=== PATIENT | male | born 1935 | race African-American/Black ===

== ENCOUNTER 2021-04-16 01:47 | Inpatient (IN) | payer MEDICARE, OTHER ==
[~2021-04-16] VITALS: Ht 198.1 cm; Wt 88.0 kg
[2021-04-16] VITALS (14 sets, daily range): BP systolic 122–168; BP diastolic 49–99
--- NOTE | 2021-04-16 01:51 | NUR ---
PT BIBRA C/O SOB WHEN POWER IN HOUSE WENT OUT AND HOME O2 STOPPED WORKING. PT AAOX4 BREATHING EVENLY AND UNLABORED ON 2L O2 VIA NC STATURATING 96%. MD AT BEDSIDE FOR EVAL. PT ATTACHED TO MONITOR AND POX. PT GIVEN BLANKET AND CALL LIGHT WITHIN REACH
--- NOTE | 2021-04-16 03:04 | NUR ---
CALLED CARYL TO HAVE IMAGES READ
[2021-04-16] MEDS ORDERED: CEFTRIAXONE 1GM BAG (ER ONLY) 50 ML IV ONE (04:11)
[2021-04-16] MEDS ORDERED: AZITHROMYCIN 500 MG VIAL ONE (04:11)
[2021-04-16] MEDS ORDERED: CEFTRIAXONE 1 G in IV D5W 50 ML IV ONE (04:30)
[2021-04-16] MEDS ORDERED: AZITHROMYCIN 500 MG in IV D5W 250 ML IV ONE (04:30)
--- NOTE | 2021-04-16 04:41 | NUR ---
blood and covid swab sent to lab
[2021-04-16 04:55] LABS: BASOPHILS % (AUTO) 0.8 % (0.0-2.0); EOSINOPHILS % (AUTO) 3.4 % (0.0-6.0); HEMATOCRIT 34 % (39-51); HEMOGLOBIN 10.4 g/dL (13.5-17.5); LYMPHOCYTES # (AUTO) 1.3 K/uL (0.8-4.8); LYMPHOCYTES % (AUTO) 22.3 % (20.0-44.0); MEAN CORPUSCULAR HGB CONC 30 g/dl (31.0-36.0); MEAN CORPUSCULAR VOLUME 90 fL (80-96); MONOCYTES # (AUTO) 0.7 K/uL (0.1-1.30); MONOCYTES % (AUTO) 12.8 % (2.0-12.0); NEUTROPHILS # (AUTO) 3.5 K/uL (1.8-8.9); NEUTROPHILS % (AUTO) 60.7 % (43.0-81.0); PLATELET COUNT (AUTO) 223 K/uL (150-450); RED BLOOD CELL COUNT(AUTO) 3.78 MIL/uL (4.5-6.0); WHITE BLOOD COUNT (AUTO) 5.8 K/uL (4.3-11.0)
[2021-04-16] MEDS ORDERED: Z GUARD REMEDY 2 OZ OINT TP PRN (05:00)
[2021-04-16] MEDS ORDERED: ZOLPIDEM TARTRATE 5 MG TABLET PO PRN (05:00)
[2021-04-16] MEDS ORDERED: ACETAMINOPHEN 325 MG TABLET PO PRN (05:00)
[2021-04-16] MEDS ORDERED: MAGNESIUM HYDROXIDE 30 ML UDC PO PRN (05:00)
[2021-04-16] MEDS ORDERED: ONDANSETRON HCL/PF 4 MG/2 ML VIAL IVP PRN (05:00)
[2021-04-16] MEDS ORDERED: HYDROCODONE/APAP 5/325MG TABLET PO PRN (05:00)
[2021-04-16] MEDS ORDERED: MAG HYDROX/AL HYDROX/SIMETH 30 ML UDC PO PRN (05:00)
[2021-04-16 05:09] LABS: CALCIUM, SERUM 8.8 mg/dL (8.5-10.1); CARBON DIOXIDE 37 mmol/L (21-32); CHLORIDE 104 mmol/L (98-107); CREATININE 1.5 mg/dL (0.6-1.3); GLUCOSE 100 mg/dL (74-106); POTASSIUM 4.8 mmol/L (3.5-5.1); SODIUM SERUM 142 mmol/L (136-145); UREA NITROGEN, BLOOD 21 mg/dL (7-18)
[2021-04-16 05:21] LABS: ALANINE AMINOTRANSFERASE 17 U/L (12-78); ALBUMIN 3.2 g/dL (3.4-5.0); ALKALINE PHOSPHATASE 49 U/L (46-116); ASPARTATE AMINOTRANSFERASE 16 U/L (15-37); BILIRUBIN,TOTAL 0.2 mg/dL (0.2-1.0); TOTAL PROTEIN, SERUM 7.3 g/dL (6.4-8.2)
--- NOTE | 2021-04-16 05:40 | NUR ---
Patient is resting comfortably in bed with eyes closed. Easily aroused. VSS
--- NOTE | 2021-04-16 07:22 | NUR ---
report given to robinson Nicolas for sj
[2021-04-16] MEDS: PANTOPRAZOLE 40 MG TABLET.DR PO SCH (07:30)
[2021-04-16] MEDS ORDERED: FURO40TA5 PO (08:23)
[2021-04-16] MEDS ORDERED: DOCU100T9 PO (08:23)
[2021-04-16] MEDS ORDERED: POTA10TA PO (08:23)
--- NOTE | 2021-04-16 08:45 | NUR ---
Evette ([facility]) [phone]
[2021-04-16] MEDS: ENOXAPARIN SODIUM 40 MG/0.4 ML DISP.SYRIN SQ SCH (09:00)
[2021-04-16] MEDS ORDERED: ENOXAPARIN SODIUM 40 MG/0.4 ML DISP.SYRIN SQ ONE (09:53)
[2021-04-16] MEDS ORDERED: PANTOPRAZOLE 40 MG TABLET.DR PO ONE (09:54)
[2021-04-16] MEDS: VANCOMYCIN 1.25 GM in IV D5W 250 ML IV SCH (10:00)
--- NOTE | 2021-04-16 10:24 | NUR ---
PATIENT WILL GO TO RM 101
--- NOTE | 2021-04-16 10:30 | NUR ---
PER DR HAQUE, HE WANTS ICU WITH NEGATIVE PRESSURE ROOM. CALLED NURSING MEDICAL CUSTOMER SERVICE REPRESENTATIVE FOR BED.
--- NOTE | 2021-04-16 10:31 | NUR ---
PATIENT WILL GO TO ICU 255
--- NOTE | 2021-04-16 10:54 | NUR ---
COVID PCR TEST WAS COLLECTED AND SENT TO THE LAB
[2021-04-16] MEDS ORDERED: ALBUTEROL FS 2.5 MG/3 ML VIAL.NEB ONE (10:59)
[2021-04-16] MEDS ORDERED: IPRATROPIUM NEB FS 0.5 MG/2.5 ML AMPUL.NEB ONE (11:00)
--- NOTE | 2021-04-16 11:00 | NUR ---
REPORT GIVEN TO SHEA MEZA FOR CARLOS
--- NOTE | 2021-04-16 11:04 | NUR ---
RT AT BEDSIDE FOR BREATHING TREATMENT
[2021-04-16] MEDS: IPRATROPIUM NEB FS 0.5 MG/2.5 ML AMPUL.NEB NEB SCH ×4 (11:06→23:19)
[2021-04-16] MEDS: ALBUTEROL HALF STRENGTH 1.25 MG/3 ML VIAL.NEB NEB SCH ×5 (11:07→23:19)
[2021-04-16 11:10] LABS: ABG PCO2 82.5 mmHg (35.0-45.0); ABG PH 7.274 (7.350-7.450); ABG PO2 44.9 mmHg (75.0-100.0); COHb 0.3 % (0.5-1.5); MetHb 0.3 % (0.0-1.5); O2Hb 79.4 % (94.0-97.0); SITE, ABG Left Radial; VENT MODE, BG nasal cannula
--- NOTE | 2021-04-16 11:24 | NUR ---
PT TRANSFERRED TO ICU 255 VIA ACLS PROTOCOL. VSS
--- NOTE | 2021-04-16 11:30 | NUR ---
REMOTE CONTROL MIRROR INSTALLER REC'D PT FROM ER. REPORT RECEIVED. PT AWAKE, FOLLOWING COMMANDS. PLACED ON BIPAP WITH SPO2 97% ON CURRENT SETTINGS.
[2021-04-16 12:49] LABS: ABG BASE EXCESS 8.5 mmol/L; ABG OXYGEN SATURATION 93.6 % (92.0-98.5); ABG PCO2 82.5 mmHg (35.0-45.0); ABG PH 7.279 (7.350-7.450); ABG PO2 71.4 mmHg (75.0-100.0); AaDO2 82.2 mmHg; COHb 0.5 % (0.5-1.5); O2Hb 93.1 % (94.0-97.0); SITE, ABG Left Radial; VENT MODE, BG ST 15/5 R 14
[2021-04-16] MEDS: methylPREDNISolone SOD SUCC 125 MG/2ML VIAL IV SCH ×3 (13:00→20:25)
--- NOTE | 2021-04-16 13:00 | NUR ---
RN/ICU-Pt. very upset, attempts to take off bipap mask in spite of verbal reminder, will monitor closely .
--- NOTE | 2021-04-16 14:00 | NUR ---
RN/ICU-pt. very hungry, taking off bipap mask, Dr. Phillip notified of pt. desire to eat, w/josh to start regular diet.
--- NOTE | 2021-04-16 14:30 | NUR ---
RN/ICU -On regular diet, eating w/ nc at 3/ for now while eating per RT.
[2021-04-16] MEDS: PIPERACILLIN /TAZOBACTAM 3.375 G in IV D5W 50 ML IV SCH ×2 (14:34→20:11)
--- NOTE | 2021-04-16 15:00 | NUR ---
RN/ICU-Ate 100% of food served. sam well.back to bipap mask .Sats.-96%
--- NOTE | 2021-04-16 18:00 | NUR ---
RN/ICU-NOW. PT. CALM, WILL TAKE DINNER AT A LATER TIME ,HAD A LATE LUNCH, CONTINUE TO BE ON BIPAP, SATS.-96%.ZAC. WELL, REMAINS ON DROPLET AND CONTACT ISOLATION, AWAITING PCR RESULT.
--- NOTE | 2021-04-16 20:00 | NUR ---
RN NOTE RECEIVED PT ON BIPAP. SLEEPING, AROUSES EASILY. ALERT AND ORIENTED. NO SIGNS OF DISTRESS WERE NOTED. SINUS RHYTHM ON TELE MONITOR. IV ON LHAND PATENT AND INTACT. ALL SAFETY MEASURES IN PLACE. WILL CONTINUE TO MONITOR. PCR STILL PENDING, ISOLATION PRECAUTION OBSERVED PER PROTOCOL.
--- NOTE | 2021-04-16 21:40 | NUR ---
@2100 pt taken off BiPAP and placed on 3L NC to eat. No sob O2 sat 98%.
--- NOTE | 2021-04-16 21:50 | NUR ---
RN NOTE PT OFF BIPAP TO EAT. PT TOLERATING O2 VIA NC. NO SIGNS OF DISTRESS. PT EATING WELL. WILL CONTINUE TO MONITOR.
--- NOTE | 2021-04-16 22:07 | NUR ---
PT BACK ON BIPAP.
[2021-04-17] VITALS (32 sets, daily range): BP systolic 44–182; BP diastolic 23–106
[2021-04-17] MEDS: PIPERACILLIN /TAZOBACTAM 3.375 G in IV D5W 50 ML IV SCH ×5 (00:56→20:31)
[2021-04-17] MEDS: IPRATROPIUM NEB FS 0.5 MG/2.5 ML AMPUL.NEB NEB SCH ×6 (03:27→23:03)
[2021-04-17] MEDS: ALBUTEROL HALF STRENGTH 1.25 MG/3 ML VIAL.NEB NEB SCH ×6 (03:27→23:03)
[2021-04-17] MEDS: VANCOMYCIN 1.25 GM in IV D5W 250 ML IV SCH ×2 (04:23→21:06)
[2021-04-17] MEDS: methylPREDNISolone SOD SUCC 125 MG/2ML VIAL IV SCH ×3 (04:26→20:27)
[2021-04-17 04:30] LABS: BASOPHILS % (AUTO) 0.4 % (0.0-2.0); EOSINOPHILS % (AUTO) 0.1 % (0.0-6.0); HEMATOCRIT 35 % (39-51); HEMOGLOBIN 11.1 g/dL (13.5-17.5); LYMPHOCYTES # (AUTO) 0.5 K/uL (0.8-4.8); LYMPHOCYTES % (AUTO) 13.3 % (20.0-44.0); MEAN CORPUSCULAR HGB CONC 32 g/dl (31.0-36.0); MEAN CORPUSCULAR VOLUME 89 fL (80-96); MONOCYTES # (AUTO) 0.1 K/uL (0.1-1.30); MONOCYTES % (AUTO) 2.9 % (2.0-12.0); NEUTROPHILS # (AUTO) 2.8 K/uL (1.8-8.9); NEUTROPHILS % (AUTO) 83.3 % (43.0-81.0); PLATELET COUNT (AUTO) 232 K/uL (150-450); RED BLOOD CELL COUNT(AUTO) 3.97 MIL/uL (4.5-6.0); WHITE BLOOD COUNT (AUTO) 3.4 K/uL (4.3-11.0)
[2021-04-17 04:48] LABS: CALCIUM, SERUM 8.9 mg/dL (8.5-10.1); CARBON DIOXIDE 38 mmol/L (21-32); CHLORIDE 100 mmol/L (98-107); CREATININE 1.5 mg/dL (0.6-1.3); GLUCOSE 142 mg/dL (74-106); MAGNESIUM 2.2 mg/dL (1.8-2.4); PHOSPHORUS 2.7 mg/dL (2.5-4.9); SODIUM SERUM 139 mmol/L (136-145); UREA NITROGEN, BLOOD 25 mg/dL (7-18)
[2021-04-17 05:04] LABS: THYROID STIMULATING HORMONE 0.297 uIU/mL (0.358-3.74)
--- NOTE | 2021-04-17 07:29 | NUR ---
RN NOTE PT REMAIN ON BIPAP. TOLERATING,. NO SIGNS OF DISTRESS NOTED. ABLE TO MAKE NEEDS KNOWN. USES URINAL. ALL DUE ATBS GIVEN ORDERED. ALL SAFETY MEASURES MAINTAINED. ENDORSED TO NEXT SHIFT NURSE FOR CARLOS.
[2021-04-17] MEDS: PANTOPRAZOLE 40 MG TABLET.DR PO SCH (07:50)
--- NOTE | 2021-04-17 08:00 | NUR ---
RN NOTES SEEN PATIENT IN THE ROOM ISOLATION,PENDING PCR. PATIENT ON BIPAP, AND RT WITH PATIENT AT THIS TIME GIVING BREATHING TREATMENT. PATIENT A/O X2/3, COOPERATIVE FOLLOWING DIRECTION. AFTER ABG RESULT PATIENT BACK TO THE NC 2L. NO ACUTE RESPIRATORY DISTRESS. TKO INFUSION INTACT ON LEFT HAND. DUE MEDICATION ADMINISTERED. PATIENT TOLERATED BREAKFAST WELL SELF. PATIENT WAS USING URINAL AND DIAPER SAME TIME. BED ALARM ON SAFETY MEASURE MEASURE MAINTAINED ALL THE TIME. CALL LIGHT WITHIN TO REACH. WILL FOLLOW UP CLOSELY.
[2021-04-17 08:43] LABS: ABG BASE EXCESS 8.1 mmol/L; ABG OXYGEN SATURATION 95.1 % (92.0-98.5); ABG PO2 76.6 mmHg (75.0-100.0); AaDO2 98.6 mmHg; O2Hb 95.1 % (94.0-97.0); SITE, ABG Right Radial; VENT MODE, BG BIPAP 50/50 R14 35%
[2021-04-17] MEDS: ENOXAPARIN SODIUM 40 MG/0.4 ML DISP.SYRIN SQ SCH (09:01)
[2021-04-17] MEDS: NIFEdipine XL (30MG) 30 MG TAB PO SCH (11:39)
--- NOTE | 2021-04-17 15:02 | NUR ---
RN NOTES PATIENT GETTING US OF KIDNEY AT THIS TIME. PATIENT VERY CONFUSED, KEEP ASKING HIS CLOTHING. TRYING TO GET OUT OF BED. BED ALARM ON. WILL FOLLOW UP.
--- NOTE | 2021-04-17 18:27 | NUR ---
rn notes patient confused removed iv access on left hand, and does not letyt me to insert new one. i will try again after dinner.
--- NOTE | 2021-04-17 19:00 | NUR ---
rn notes patient confused still irritable. patient state "i am going to seal my car". applied bilateral restrain, unable to insert iv access because patient sitting up. pharmacy notified unable to infuse Zosyn 1800. also notified oncoming nurse to followup and insert new iv access.
--- NOTE | 2021-04-17 19:20 | NUR ---
ICU/SLAG WHEELER RECIEVED REPORT FROM DAY NURSE. SEE FLOWSHEET FOR ASSESSMENT. AT THIS TIME THERE ARE NO SKIN ISSUES WHICH IS REQUIRED TO BE ADDRESSED. PT APPEARS TO BE SLIGHTLY AGITATED TRYING TO GET OUT OF BED. PT HAS CALL LIGHT, CALLS FREQUENTLY NEEDS ORIENTATION OFTEN, PERIODS OF FORGETFULNESS. WILL CONTINUE TO MONITOR THIS PT.
--- NOTE | 2021-04-17 20:15 | NUR ---
ICU/X RAY DEVELOPER CHARGE NURSE CALLED THE TAX CONSULTANT MD TO ASK FOR ATIVAN TO HELP REDUCE THE RESTLESS PT APPEARS TO BE HAVING. ORDERS WERE RECIEVED AND CARRIED OUT. SEE MAR FOR ATIVAN GIVEN @2029 IVP. WILL CONTINUE TO CLOSELY MONITOR THIS PT.
[2021-04-17] MEDS: LORAZEPAM INJ 2 MG/ML VIAL IV PRN (20:22)
--- NOTE | 2021-04-17 23:13 | NUR ---
PT PLACED ON NOC BIPAP, RN NOTIFIED.
--- NOTE | 2021-04-17 23:38 | NUR ---
ICU/WORKFORCE DEVELOPMENT ASSISTANT RT PLACED NIGHT TIME BIPAP ON PT 20/, RATE 16, FIO2 30%. WILL CONTINUE TO MONITOR THIS PT.
[2021-04-18] VITALS (25 sets, daily range): BP systolic 116–224; BP diastolic 55–159
[2021-04-18] MEDS: PIPERACILLIN /TAZOBACTAM 3.375 G in IV D5W 50 ML IV SCH ×4 (02:30→20:10)
[2021-04-18] MEDS: IPRATROPIUM NEB FS 0.5 MG/2.5 ML AMPUL.NEB NEB SCH ×6 (03:30→22:37)
[2021-04-18] MEDS: ALBUTEROL HALF STRENGTH 1.25 MG/3 ML VIAL.NEB NEB SCH ×6 (03:30→22:36)
--- NOTE | 2021-04-18 03:50 | NUR ---
ICU/RUSSIAN LANGUAGE PROFESSOR CALLED THE DR MEDICAL MANAGER MAUREEN Krishna FOR PRN MEDICATION FOR ELEVATED BP OF 170/77. PRN HYDRALAZINE 10MG IVP EVERY 8 HOURS WAS OBTAINED AND ORDER WAS CARRIED OUT BY COMBAT CONTROL MANAGER NURSE.
[2021-04-18] MEDS: LORAZEPAM INJ 2 MG/ML VIAL IV PRN (04:11)
[2021-04-18] MEDS: methylPREDNISolone SOD SUCC 125 MG/2ML VIAL IV SCH ×3 (04:39→20:10)
--- NOTE | 2021-04-18 04:49 | NUR ---
ICU/ELECTROPLATER ATIVAN IVP WAS GIVEN FOR AGITATION, PT IS TRYING TO GET OUT OF BED. PT REFUSED LAB THEN STATED TO KICK AND HIT STAFF AROUND THE PT. CHARGE NURSE CALLED IN AND TRIED TO DRAW LINE. MIDLINE ORDER WAS PLACED IN COMPUTER.
--- NOTE | 2021-04-18 06:03 | NUR ---
PT TAKEN OFF NOC BIPAP AND PLACED ON 3L NC. RN NOTIFIED.
--- NOTE | 2021-04-18 06:03 | NUR ---
ICU/FACTORY HELPER PM BIPAP WAS TAKEN OFF, 3 LITERS N/C WAS PLACED ON PT. WILL CONTINUE TO MONITOR THIS PT.
--- NOTE | 2021-04-18 08:00 | NUR ---
rn notes SEEN PATIENT ON NC 2L, UPPER CHEST CONGESTED DURING AUSCULTATION, AND RT WITH PATIENT AT THIS TIME GIVING BREATHING TREATMENT. PATIENT A/O X2/3, PATIENT NEED REDIRECTION. NO ACUTE RESPIRATORY DISTRESS. DUE MEDICATION ADMINISTERED. PATIENT TOLERATED BREAKFAST WELL WITH ASSIST. PICC LINE INSERTED ON RIGHT UA INTACT. PATIENT WAS USING URINAL AND DIAPER SAME TIME. BED ALARM ON SAFETY MEASURE MAINTAINED ALL THE TIME. RECHECKED BILATERAL SOFT RESTRAIN FOR CIRCULATION. CALL LIGHT WITHIN TO REACH. WILL FOLLOW UP CLOSELY.
[2021-04-18] MEDS: PANTOPRAZOLE 40 MG TABLET.DR PO SCH (08:01)
[2021-04-18] MEDS: NIFEdipine XL (30MG) 30 MG TAB PO SCH (08:12)
[2021-04-18] MEDS: ENOXAPARIN SODIUM 40 MG/0.4 ML DISP.SYRIN SQ SCH (08:13)
[2021-04-18] MEDS: hydrALAZINE HCL IV 20 MG VIAL IV PRN ×2 (08:15→16:17)
--- NOTE | 2021-04-18 12:40 | NUR ---
RN NOTES TRANSFERRED PATIENT TO THE TELE UNIT ROOM 111 BED 1 ON STABLE CONDITION. BEDSIDE REPORT GIVEN RN FOLLOW PLAN OF CARE.
[2021-04-18 15:23] LABS: BASOPHILS # (AUTO) 0.1 K/uL (0.0-0.2); BASOPHILS % (AUTO) 0.6 % (0.0-2.0); HEMATOCRIT 37 % (39-51); HEMOGLOBIN 11.5 g/dL (13.5-17.5); LYMPHOCYTES # (AUTO) 0.6 K/uL (0.8-4.8); LYMPHOCYTES % (AUTO) 6.5 % (20.0-44.0); MEAN CORPUSCULAR HGB CONC 31 g/dl (31.0-36.0); MEAN CORPUSCULAR VOLUME 88 fL (80-96); MONOCYTES # (AUTO) 0.9 K/uL (0.1-1.30); MONOCYTES % (AUTO) 9.9 % (2.0-12.0); NEUTROPHILS # (AUTO) 7.5 K/uL (1.8-8.9); PLATELET COUNT (AUTO) 247 K/uL (150-450); RED BLOOD CELL COUNT(AUTO) 4.15 MIL/uL (4.5-6.0)
[2021-04-18 15:35] LABS: ALANINE AMINOTRANSFERASE 18 U/L (12-78); ALBUMIN 3.3 g/dL (3.4-5.0); ALKALINE PHOSPHATASE 51 U/L (46-116); ASPARTATE AMINOTRANSFERASE 13 U/L (15-37); BILIRUBIN,TOTAL 0.2 mg/dL (0.2-1.0); CARBON DIOXIDE 37 mmol/L (21-32); CHLORIDE 102 mmol/L (98-107); CREATININE 1.4 mg/dL (0.6-1.3); GLUCOSE 142 mg/dL (74-106); MAGNESIUM 2.2 mg/dL (1.8-2.4); PHOSPHORUS 4.2 mg/dL (2.5-4.9); POTASSIUM 4.5 mmol/L (3.5-5.1); SODIUM SERUM 144 mmol/L (136-145); TOTAL PROTEIN, SERUM 7.6 g/dL (6.4-8.2); UREA NITROGEN, BLOOD 27 mg/dL (7-18)
[2021-04-18] MEDS: VANCOMYCIN 1.25 GM in IV D5W 250 ML IV SCH (15:49)
[2021-04-18 15:55] LABS: CREATINE KINASE, TOTAL 70 U/L (39-308)
--- NOTE | 2021-04-18 18:30 | NUR ---
RN CLOSING NOTES PT REMAINS IN BED A/O X1-2, ON NC 2L, NO ACUTE RESPIRATORY DISTRESS NOTED AT THIS TIME. BREATHING EVEN AND UNLABORED, PICC LINE INSERTED ON RIGHT UPPER ARM FLUSHING WELL, TEGADERM containing blood amount not changing, BLOOD RETURN OBTAINED FROM HEMO PORT, DRESSING REINFORCED, TELE READING SR/ST 101, BED ALARM ON, SAFETY MEASURE MAINTAINED ALL THE TIME. BILATERAL SOFT RESTRAIN RENEWED, CALL LIGHT WITHIN REACH. WILL ENDORSE TO SUPERVISOR RIDE ASSEMBLY NURSE
--- NOTE | 2021-04-18 20:01 | NUR ---
CAREER PROFESSIONAL OPENING NOTES: RECEIVED PATIENT FROM DAY SHIFT, IN BED, A/O X1, CONFUSED, SIDE RAILS UP X2, BED AT LOWEST POSITION, CALL LIGHT WITHIN REACH, RESTRAINTS ON WRISTS X2, WILL CONTINUE TO MONITOR AND ADMINISTER NURSING INTERVENTIONS NECESSARY.
--- NOTE | 2021-04-18 21:24 | NUR ---
RT NOTE PLACED PT ON NOC BIPAP. SUSANA MCNAIR NOTIFIED. WILL CONTINUE TO MONITOR T/O SHIFT.
--- NOTE | 2021-04-18 22:59 | NUR ---
RT NOTE REMOVED BIPAP AND PLACED PT ON 4LPM NC D/T PT OPENING HIS MOUTH WIDE ENOUGH TO CREATE MASSIVE LEAK. TOLD PT TO NOT DO THAT AND HE SAID TO REMOVE THE MASK. NO SOB NOTED. TX GIVEN. WILL CONTINUE TO MONITOR T/O SHIFT. SUSANA MCNAIR NOTIFIED.
[2021-04-19] VITALS: BP 164/69
--- NOTE | 2021-04-19 01:23 | NUR ---
RT NOTE PT CURRENTLY AWAKE AND WATCHING TV. CHECKED IN ON HIM SPO2 94-95% HR 91-92. NO SOB OR INCREASED WOB. NO S/S OF ACUTE RESPIRATORY DISTRESS. TRIED TO PLACE BIPAP ON PT HE KEPT SHAKING HIS HEAD. EXPLAINED BENEFITS OF BIPAP TO PT. WILL CONTINUE TO MONITOR T/O SHIFT. WILL GIVE NEXT BREATHING TX AT 0330
[2021-04-19] MEDS: PIPERACILLIN /TAZOBACTAM 3.375 G in IV D5W 50 ML IV SCH ×4 (02:20→20:42)
[2021-04-19] MEDS: IPRATROPIUM NEB FS 0.5 MG/2.5 ML AMPUL.NEB NEB SCH ×5 (02:35→19:30)
[2021-04-19] MEDS: ALBUTEROL HALF STRENGTH 1.25 MG/3 ML VIAL.NEB NEB SCH ×5 (02:35→19:30)
--- NOTE | 2021-04-19 02:48 | NUR ---
RT NOTE BREATHING TX GIVEN. NO SOB, INCREASED WOB OR S/S OF RESPIRATORY DISTRESS. SPO2 96-98% ON 4LPM NC. WAS ASLEEP. WILL CONTINUE TO MONITOR T/O SHIFT.
[2021-04-19 04:00] VITALS: BP 175/91
[2021-04-19] MEDS: methylPREDNISolone SOD SUCC 125 MG/2ML VIAL IV SCH ×3 (04:49→20:41)
[2021-04-19] MEDS: hydrALAZINE HCL IV 20 MG VIAL IV PRN ×2 (05:06→21:57)
[2021-04-19 06:47] LABS: BASOPHILS % (AUTO) 0.4 % (0.0-2.0); HEMATOCRIT 37 % (39-51); HEMOGLOBIN 11.6 g/dL (13.5-17.5); LYMPHOCYTES # (AUTO) 0.5 K/uL (0.8-4.8); LYMPHOCYTES % (AUTO) 6.6 % (20.0-44.0); MEAN CORPUSCULAR HGB CONC 32 g/dl (31.0-36.0); MEAN CORPUSCULAR VOLUME 87 fL (80-96); MONOCYTES # (AUTO) 0.7 K/uL (0.1-1.30); MONOCYTES % (AUTO) 8.7 % (2.0-12.0); NEUTROPHILS # (AUTO) 6.3 K/uL (1.8-8.9); NEUTROPHILS % (AUTO) 84.3 % (43.0-81.0); PLATELET COUNT (AUTO) 235 K/uL (150-450); RED BLOOD CELL COUNT(AUTO) 4.18 MIL/uL (4.5-6.0); WHITE BLOOD COUNT (AUTO) 7.5 K/uL (4.3-11.0)
--- NOTE | 2021-04-19 06:50 | NUR ---
CLERICAL WAREHOUSEMAN CLOSING NOTES: PATIENT A/O X2 IN BED, AWAKE, V/S WNL, SIDE RAILS UP X2, BED AT LOWEST POSITION, BRAKES LOCKED, NC ON 4L, NO SIGNS OF DISTRESS, NO SOB, WILL ENDORSE TO DAY SHIFT NURSE. WILL CONTINUE TO MONITOR UNTIL CHANGE OF SHIFT.
[2021-04-19 07:17] LABS: CALCIUM, SERUM 9.4 mg/dL (8.5-10.1); CARBON DIOXIDE 34 mmol/L (21-32); CHLORIDE 102 mmol/L (98-107); CREATININE 1.4 mg/dL (0.6-1.3); GLUCOSE 144 mg/dL (74-106); POTASSIUM 4.4 mmol/L (3.5-5.1); SODIUM SERUM 143 mmol/L (136-145); UREA NITROGEN, BLOOD 28 mg/dL (7-18)
--- NOTE | 2021-04-19 07:35 | NUR ---
RN OPENING NOTES Patient seen comfortably lying in bed, no SOB, no apparent distress noted, breathing even and unlabored, denies any pain or discomfort at this time, no grimacing. Call light left within reach, safety precautions in place, brakes locked, side rails up X 2, will monitor closely for any changes.
[2021-04-19 08:00] VITALS: BP 138/76
[2021-04-19] MEDS: PANTOPRAZOLE 40 MG TABLET.DR PO SCH (10:13)
[2021-04-19] MEDS: VANCOMYCIN 1.25 GM in IV D5W 250 ML IV SCH (10:14)
[2021-04-19] MEDS: NIFEdipine XL (30MG) 30 MG TAB PO SCH (10:18)
[2021-04-19] MEDS: ENOXAPARIN SODIUM 40 MG/0.4 ML DISP.SYRIN SQ SCH (10:39)
[2021-04-19 12:00] VITALS: BP 148/73
[2021-04-19 16:00] VITALS: BP 144/81
--- NOTE | 2021-04-19 18:22 | NUR ---
RN CLOSING NOTES Patient lying in bed, AO X 2, with episodes of confusion and forgetfulness, reorientation provided as needed. Respirations even and unlabored, no SOB, no dizziness, no palpitations, no apparent distress noted, denies any pain or discomfort, no grimacing. All medications given per MD order, tolerating well. Patient has an order for soft wrist restraint for safety, visual check rendered every 15 minutes, patient repositioned frequently, no s/s of circulation impairment noted at this time, skin warm to touch, no pallor or cyanosis noted. All needs anticipated, kept clean and dry, call light left within reach, safety precautions in place, brakes locked, side rails up X 2, will endorse to next shift for continuity of care.
--- NOTE | 2021-04-19 19:30 | NUR ---
MARKET RISK MANAGER OPENING NOTES: RECEIVED PATIENT FROM DAY SHIFT, PATIENT AWAKE AND IN BED, NC 4L , SATURATING 97%, TELE MONITOR SHOWS SR, PATIENT HAS VICKY PICC LINE PATENT AND INTACT AND LEFT #18 JUGULAR, PATENT AND INTACT, BED AT LOWEST POSITION, BRAKES LOCKED, CALL LIGHT WITHIN REACH, SIDE RAILS UPX2, RESTRAINTS ON BILATERALLY ON BOTH ARMS AND LEGS. WILL CONTINUE TO MONITOR AND ADMINISTER PLAN OF CARE AND NURSING INTERVENTIONS NEEDED.
[2021-04-19 20:00] VITALS: BP 190/101
--- NOTE | 2021-04-19 20:30 | NUR ---
DRAIN TILE PRESS OPERATOR NOTES: ADMINISTER HYDRALAZAE FOR HIGH BP - 191/100 .
[2021-04-20 00:59] VITALS: BP 190/101
--- NOTE | 2021-04-20 00:59 | NUR ---
VITALS REQUIRED TO BE CHANGED TO Q8 INSTEAD OF Q4 Addendum: 04/20/21 at 0100 by SHAVONNE MOE RN Amended: Links added.
--- NOTE | 2021-04-20 01:00 | NUR ---
pt agitated and refusing bipap. pt pulling at mask and moving head. Addendum: 04/20/21 at 0421 by CHAGO SRINIVASAN RT Amended: Links added.
[2021-04-20] MEDS: LORAZEPAM INJ 2 MG/ML VIAL IV PRN (01:28)
[2021-04-20] MEDS: PIPERACILLIN /TAZOBACTAM 3.375 G in IV D5W 50 ML IV SCH ×4 (02:41→20:48)
[2021-04-20] MEDS: ALBUTEROL HALF STRENGTH 1.25 MG/3 ML VIAL.NEB NEB SCH ×6 (03:04→20:07)
[2021-04-20] MEDS: IPRATROPIUM NEB FS 0.5 MG/2.5 ML AMPUL.NEB NEB SCH ×6 (03:04→20:07)
[2021-04-20] MEDS: VANCOMYCIN 1.25 GM in IV D5W 250 ML IV SCH ×2 (04:10→23:24)
[2021-04-20] MEDS: methylPREDNISolone SOD SUCC 125 MG/2ML VIAL IV SCH ×3 (04:11→20:43)
[2021-04-20] MEDS: hydrALAZINE HCL IV 20 MG VIAL IV PRN (04:47)
--- NOTE | 2021-04-20 06:35 | NUR ---
CONSTRUCTION SERVICES TECHNICIAN CLOSING NOTES: PATIENT IN BED, RESTING, ON NC 4L SATURATION 97%, VICKY PICC LINE REQUIRES DRESSING CHANGE, L. #18 JUGULAR DISLODGED AND REMOVED, ATIVAN AND HYDRALAZINE GIVEN NEEDED, HYDRALAZINE GIVEN FOR BP 190/101 AT 2200 AND 180/98 FOR BP 180/98. BED AT LOWEST POSITION, BRAKES LOCKED AND IN PLACE, SIDE RAILS UP X2, CALL LIGHT WITHIN REACH, WILL ENDORSE TO DAY SHIFT NURSE, WILL CONTINUE TO MONITOR AND IMPLEMENT NURSING INTERVENTIONS NECESSARY.
--- NOTE | 2021-04-20 07:21 | NUR ---
pt. received on 3 lpm nasal cannula Addendum: 04/20/21 at 0722 by FORD CHRISTENSEN RT Amended: Links added.
--- NOTE | 2021-04-20 07:30 | NUR ---
CITY ALDERMAN OPENING NOTES: RECEIVED PATIENT IN BED, EYES CLOSED, RESPONDS TO NAME AND TOUCH, CONFUSED. ON 4L O2 NASAL CANULA SATTING 96%. NO SOB, NO DISTRESS, NO SIGN SOF PAIN, NO GRIMACINGS. VICKY PICC LINE FLUSHES WELL, SITE CLEAR, CDI DRESSING. SEE NURSING FLOWSHEET BILATERAL RESTRAINTS IN PLACE, RELEASED AND CHECKED FOR CIRCULATION, THEN Q 2 HOURS. WILL TURN AND REPOSITION Q 2 HOURS. REGULAR DIET, FEEDER. SIDE RAILS UP X2, BED AT LOWEST POSITION, CALL LIGHT WITHIN REACH, WILL CONTINUE TO MONITOR AND ADMINISTER NURSING INTERVENTIONS NECESSARY.
[2021-04-20 08:00] VITALS: BP 166/92
[2021-04-20] MEDS: PANTOPRAZOLE 40 MG TABLET.DR PO SCH (08:19)
[2021-04-20] MEDS: NIFEdipine XL (30MG) 30 MG TAB PO SCH (08:19)
[2021-04-20] MEDS: ENOXAPARIN SODIUM 40 MG/0.4 ML DISP.SYRIN SQ SCH (08:24)
[2021-04-20] MEDS ORDERED: CLONIDINE HCL 0.1 MG TABLET PO PRN (09:30)
--- NOTE | 2021-04-20 09:30 | NUR ---
RN NOTES DUE MEDS GIVEN
[2021-04-20 09:37] LABS: ABG PCO2 57.4 mmHg (35.0-45.0); ABG PH 7.386 (7.350-7.450); ABG PO2 50.5 mmHg (75.0-100.0); AaDO2 110.5 mmHg; COHb 0.6 % (0.5-1.5); MetHb 0.1 % (0.0-1.5); O2Hb 84.4 % (94.0-97.0); SITE, ABG Right Radial; VENT MODE, BG NASAL CANNULA
[2021-04-20] MEDS ORDERED: NIFEdipine XL (30MG) 30 MG TAB PO ONE (10:00)
[2021-04-20 16:00] VITALS: BP 110/63
[2021-04-20 17:24] LABS: CALCIUM, SERUM 8.8 mg/dL (8.5-10.1); CARBON DIOXIDE 34 mmol/L (21-32); CHLORIDE 102 mmol/L (98-107); CREATININE 1.6 mg/dL (0.6-1.3); GLUCOSE 113 mg/dL (74-106); POTASSIUM 4.2 mmol/L (3.5-5.1); SODIUM SERUM 140 mmol/L (136-145); UREA NITROGEN, BLOOD 37 mg/dL (7-18)
--- NOTE | 2021-04-20 19:13 | NUR ---
SLATE TRIMMER NOTES PATIENT RESTING COMFORTABLY, ALL NEEDS MET. PT NOT IN ANY DISTRESS. RESTRAINT IN PLACE, PM CARE DONE, REPOSITIONED Q 2 HOURS. WILL ENDORSE TO NEXT SHIFT FOR CARLOS.
--- NOTE | 2021-04-20 19:20 | NUR ---
1919 Report received from SUSANA Hassan with questions answered.
--- NOTE | 2021-04-20 19:50 | NUR ---
1950 Received sleeping in bed, easily arousable. Able to respond to simple questions. No c/o pain of any discomfort when asked. No signs of difficulty breathing noted. Right arm PICC line intact with good blood return noted from 2 ports. Dressing noted with dried blood. Incontinent of bowel but able to ask for urinal. Noted with 250ml urine output. Kept clean and dry. Needs attended. Call light placed within reach. HOB kept elevated for max oxygenation.
[2021-04-20 20:00] VITALS: BP 115/63
[2021-04-21] MEDS: ALBUTEROL HALF STRENGTH 1.25 MG/3 ML VIAL.NEB NEB SCH ×6 (00:25→20:08)
[2021-04-21] MEDS: IPRATROPIUM NEB FS 0.5 MG/2.5 ML AMPUL.NEB NEB SCH ×6 (00:25→20:08)
--- NOTE | 2021-04-21 00:45 | NUR ---
0045 Per RT Mo patient was put on BIPAP as ordered.
--- NOTE | 2021-04-21 02:00 | NUR ---
0200 AM care rendered and linens changed. BM x 1 large and soft in consistency. Patient tolerated procedure well. Remains on BIPAP as ordered O2 saturation maintained in the mid 90s. Right PICC line dressing changed due to soilage. Turned and repositioned. Call light placed within reach.
[2021-04-21] MEDS: PIPERACILLIN /TAZOBACTAM 3.375 G in IV D5W 50 ML IV SCH ×4 (03:07→21:48)
[2021-04-21] MEDS: methylPREDNISolone SOD SUCC 125 MG/2ML VIAL IV SCH ×3 (05:03→21:49)
--- NOTE | 2021-04-21 05:45 | NUR ---
0545 Off BIPAP per RT. Placed on 2L NC, O2 saturation at 93%. Patient awake and asking for food. Provided with juice and crackers. HOB elevated for aspiration precaution and max oxygenation. Call light placed within reach.
[2021-04-21 08:00] VITALS: BP 139/64
[2021-04-21 08:09] LABS: BASOPHILS % (AUTO) 0.1 % (0.0-2.0); HEMATOCRIT 36 % (39-51); HEMOGLOBIN 11.3 g/dL (13.5-17.5); LYMPHOCYTES # (AUTO) 0.5 K/uL (0.8-4.8); LYMPHOCYTES % (AUTO) 7.7 % (20.0-44.0); MEAN CORPUSCULAR HGB CONC 31 g/dl (31.0-36.0); MEAN CORPUSCULAR VOLUME 89 fL (80-96); MONOCYTES # (AUTO) 0.7 K/uL (0.1-1.30); MONOCYTES % (AUTO) 10.5 % (2.0-12.0); NEUTROPHILS # (AUTO) 5.4 K/uL (1.8-8.9); NEUTROPHILS % (AUTO) 81.7 % (43.0-81.0); PLATELET COUNT (AUTO) 198 K/uL (150-450); RED BLOOD CELL COUNT(AUTO) 4.09 MIL/uL (4.5-6.0); WHITE BLOOD COUNT (AUTO) 6.6 K/uL (4.3-11.0)
[2021-04-21 08:50] LABS: CALCIUM, SERUM 8.4 mg/dL (8.5-10.1); CARBON DIOXIDE 33 mmol/L (21-32); CHLORIDE 102 mmol/L (98-107); CREATININE 1.7 mg/dL (0.6-1.3); GLUCOSE 172 mg/dL (74-106); MAGNESIUM 2.8 mg/dL (1.8-2.4); PHOSPHORUS 4.2 mg/dL (2.5-4.9); POTASSIUM 4.5 mmol/L (3.5-5.1); SODIUM SERUM 138 mmol/L (136-145); UREA NITROGEN, BLOOD 37 mg/dL (7-18)
[2021-04-21] MEDS: ENOXAPARIN SODIUM 40 MG/0.4 ML DISP.SYRIN SQ SCH (09:10)
[2021-04-21] MEDS: PANTOPRAZOLE 40 MG TABLET.DR PO SCH (09:11)
[2021-04-21] MEDS: NIFEdipine XL (30MG) 30 MG TAB PO SCH (09:14)
[2021-04-21 11:07] LABS: *SPE A/G RATIO 0.9 (0.7-1.7); *SPE ALPHA-1-GLOBULIN 0.3 g/dL (0.0-0.4); *SPE ALPHA-2-GLOBULIN 0.9 g/dL (0.4-1.0); *SPE BETA GLOBULIN 1.2 g/dL (0.7-1.3); *SPE M-SPIKE Not Observed g/dL (Not Observed)
--- NOTE | 2021-04-21 12:09 | NUR ---
RN NOTES SPOKE W/ INDY FROM [facility] ([phone]) AND INFORMED ABOUT PATIENT'S CURRENT BIPAP SETTINGS (IPAP-20, EPAP-5, RATE-14, FIO2-30%). PATIENT REPORT ALSO GIVEN. PER INDY, WILL EVAL PATIENT AT THIS TIME. SPOKE W/ PATIENT'S NIECE AND INFORMED ABOUT CURRENT PROGRESS/CONDITION.
--- NOTE | 2021-04-21 18:56 | NUR ---
RN NOTES PATIENT RESTING IN BED NOT IN ACUTE DISTRESS. BREATHING EVEN AND UNLABORED. A/O X1, CONFUSED. B/L SOFTWRIST RESTRAINTS ON, CIRCULATION CHECKED. PICC LINE INTACT AND PATENT. SAFETY MEASURES MAINTAINED. WILL ENDORSE TO STATION CASHIER NURSE FOR CARLOS.
--- NOTE | 2021-04-21 19:35 | NUR ---
RN NOTE PATIENT IN BED ALERT AND RESPONSIVE. ON 3L VIA NASAL CANNULA, NO S/S OF RESPIRATORY DISTRESS. DENIES ANY PAIN OR DISCOMFORT. NOTED WITH VICKY PICC LINE, PATENT AND INTACT. PATIENT HAD SOFT BROWN BM, KEPT CLEAN AND DRY. BED LOCKED AND IN LOWEST POSITION. CALL LIGHT WITHIN REACH. ALL NEEDS ANTICIPATED.
[2021-04-21] MEDS ORDERED: VANCOMYCIN 1.25 GM in IV D5W 250 ML IV SCH (23:00)
[2021-04-22] MEDS: IPRATROPIUM NEB FS 0.5 MG/2.5 ML AMPUL.NEB NEB SCH ×4 (00:03→11:38)
[2021-04-22] MEDS: ALBUTEROL HALF STRENGTH 1.25 MG/3 ML VIAL.NEB NEB SCH ×4 (00:03→11:38)
[2021-04-22 00:52] VITALS: BP 139/64
[2021-04-22] MEDS: PIPERACILLIN /TAZOBACTAM 3.375 G in IV D5W 50 ML IV SCH ×2 (02:55→08:53)
--- NOTE | 2021-04-22 03:58 | NUR ---
RT NOTE PATIENT REMOVED BIPAP. PATIENT IS REFUSING TO KEEP BIPAP ON. PLACED PATIENT ON 2LPM N/C BEFORE HHX TX. NO SIGNS OF DISTRESS AT THIS TIME. PRIMARY NURSE IS AWARE. WILL CONTINUE TO MONITOR PATIENT.
[2021-04-22 04:00] VITALS: BP 149/71
[2021-04-22] MEDS: methylPREDNISolone SOD SUCC 125 MG/2ML VIAL IV SCH ×2 (04:13→13:13)
--- NOTE | 2021-04-22 06:47 | NUR ---
RN NOTE PATIENT RESTING IN BED, AROUSABLE. REMAINS ON BIPAP. DENIES ANY PAIN OR DISCOMFORT. NOTED WITH VICKY PICC LINE, PATENT AND INTACT. ALL DUE MEDS GIVEN ORDERED AND TOLERATED WELL. TURNED AND REPOSITIONED. BED LOCKED AND IN LOWEST POSITION. CALL LIGHT WITHIN REACH. WILL ENDOROSE TO AM SHIFT.
[2021-04-22 08:00] VITALS: BP 144/75
[2021-04-22] MEDS: PANTOPRAZOLE 40 MG TABLET.DR PO SCH (08:53)
[2021-04-22] MEDS: NIFEdipine XL (30MG) 30 MG TAB PO SCH (08:53)
[2021-04-22] MEDS: ENOXAPARIN SODIUM 40 MG/0.4 ML DISP.SYRIN SQ SCH (08:56)
[2021-04-22 10:17] VITALS: BP 165/88
[2021-04-22] MEDS ORDERED: NIFE-35 PO (10:35)
[2021-04-22] MEDS ORDERED: IPRA0.2S49 NEB (10:35)
[2021-04-22] MEDS ORDERED: PRED20TA PO (10:35)
[2021-04-22] MEDS ORDERED: ALBU1.257 NEB (10:35)
--- NOTE | 2021-04-22 15:10 | NUR ---
Patient to be discharged home today, no apparent distress noted, no shortness of breath, respirations even and unlabored, denies any pain or discomfort. Patient made aware of the situation, unable to sign paperwork, 2 RNs signed all discharge paper works, all belongings taken, inventory list signed by 2 RNs. Health teaching provided, verbalized understanding and gratitude. Skin assessment done prior to discharge, skin intact, warm to touch, no pallor or cyanosis noted. PICC on the right upper arm removed prior to discharge, complete and intact, no excessive bleeding noted, site covered with dry dressing. Name wristband removed prior to discharge, surgical mask provided for patient to use. [facility] picked up patient, left unit at 1410pm , stable condition, exit care documents handed to ob/gyn nurse.
== END 2021-04-22 15:09 | disposition hospice, home (50) | DRG 177 ==
LOC: ER 01:50 → TRANSITION 09:34 → UNDOADMIN 09:34 → ICU 10:51 → TELE1 04-18 12:43 → MEDSG1 04-19 12:59
PROVIDERS: ADMIT Internal Medicine; ATTEND Nurse Practitioner Family
PROC: 5A09557 Assistance with Respiratory Ventilation, Greater than 96 Consecutive Hours, Continuous Positive Airway Pressure (ICD-10-PCS; principal; 2021-04-16)
PROC: 02HV33Z Insertion of Infusion Device into Superior Vena Cava, Percutaneous Approach (ICD-10-PCS; 2021-04-18)
PROC: B548ZZA Ultrasonography of Superior Vena Cava, Guidance (ICD-10-PCS; 2021-04-18)
DX: J15.6 Pneumonia due to other Gram-negative bacteria (principal); E43 Unspecified severe protein-calorie malnutrition; N17.0 Acute kidney failure with tubular necrosis; G92.8 Other toxic encephalopathy; J96.22 Acute and chronic respiratory failure with hypercapnia; J96.21 Acute and chronic respiratory failure with hypoxia; J44.1 Chronic obstructive pulmonary disease with (acute) exacerbation; J44.0 Chronic obstructive pulmonary disease with (acute) lower respiratory infection; I13.0 Hypertensive heart and chronic kidney disease with heart failure and stage 1 through stage 4 chronic kidney disease, or unspecified chronic kidney disease; Z20.822 Contact with and (suspected) exposure to COVID-19; Z99.81 Dependence on supplemental oxygen; F03.90 Unspecified dementia, unspecified severity, without behavioral disturbance, psychotic disturbance, mood disturbance, and anxiety; G47.33 Obstructive sleep apnea (adult) (pediatric); I50.9 Heart failure, unspecified; N18.30 Chronic kidney disease, stage 3 unspecified; Z51.5 Encounter for palliative care; F17.200 Nicotine dependence, unspecified, uncomplicated; J98.4 Other disorders of lung; F09 Unspecified mental disorder due to known physiological condition; N13.9 Obstructive and reflux uropathy, unspecified
CPT/HCPCS: 36415; 36569; 36600; 71045-TC; 76770-TC; 80048-TC; 80053-TC; 80202-TC; 82550-TC; 82803-TC; 83605-TC; 83735-TC; 83880; 83970; 84100-TC; 84155; 84165; 84443-TC; 84484-TC; 85025-TC; 87040-TC; 87081-TC; 93307-TC; 94660; 94760-TC; 94762-TC; 94799-TC; 97116-TC; 97530-TC; C9803; G0378; J0360; J0456; J0696; J1650; J2060; J2543; J2930; J3370; J7050; J7060; U0003